=== PATIENT | male | born 1950 | race Caucasian/White ===

== ENCOUNTER 2024-10-18 12:18 | Outpatient (REF) | payer MEDICARE, SELFPAY ==
--- OUTSIDE RECORDS SUMMARY | 2024-10-18 14:29 | XMS_ITS | Clinical Summary ---
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 Active metoprolol succinate 50 mg tablet extended release 24 hr 50 mg, hydroCHLOROthiazide 12.5 mg capsule 12.5 mg Take by mouth. Active rosuvastatin (Ezallor Sprinkle) 20 mg capsule, sprinkle Take by mouth. Active Encounters Date Type Department Care Team Description 07/20/2024 1:30 PM EST Procedure visit General Surgery - [address] [place] [address] Gaurav Mata MD Epidermoid cyst of skin of chest (Primary Dx) from Last 3 Months Social History Tobacco Use Types Packs/Day Years Used Date Smoking Tobacco: Never Tobacco Cessation:Counseling Given: Not Answered Alcohol Use Standard Drinks/Week Comments Never 0 (1 standard drink = 0.6 oz pur e alcohol) Sex and Gender Information Value Date Recorded Sex Assigned at Not on file Legal Sex Male 12:00 PM EDT Gender Identity Not on file Sexual Orientation Not on file Obstetrics History Last Filed Vital Signs Vital Sign Reading Time Taken Comments Blood Pressure 114/69 07/20/2024 1:12 PM EST Pulse 70 07/20/2024 1:12 PM EST Temperature - - Respiratory Rate - - Oxygen Saturation - - Inhaled Oxygen Concentration - - Weight 87.4 kg (192 lb 9.6 oz) 07/20/2024 1:12 P M EST Height 167.6 cm (5' 6 ) 07/20/2024 1:12 PM EST Body Mass Index 31.09 07/20/2024 1:12 PM EST Plan of Treatment Health Maintenance Due Date Last Done Comments DTaP,Tdap,and Td Vaccines (1 - Tdap) 1970 Pneumococcal Vaccine: 50+ Years (1 of 1 - PCV) 2001 Zoster Vaccines (1 of 2) 2001 COVID-19 Vaccine (3 - 2023-2 5 season) 2024 11/28/2020, 10/31/2020 Influenza Vaccine (#1) 2024 Cholesterol Screening (Lipid Panel) 05/21/2024 Colorectal Cancer Screening: Colonoscopy 05/21/2024 Depression Screening 05/21/2024 Falls Risk Assessment 05/21/2024 Hepatitis C Screening 05/21/2024 Medicare Annual Wellness Visit 05/21/2024 Social Influencers of Health Screening 05/21/2024 Hypertension/CHF/CAD Annual BMP Blood Test 07/20/2024 RSV Immunization Patients 60 + Years Old (1 - 1-dose 75+ series) 2026 HIB Vaccines Aged Out No longer eligi ble based on patient's age to complete this topic HPV Vaccines Aged Out No longer eligi ble based on patient's age to complete this topic Hepatitis A Vaccines Aged Out No long er eligible based on patient's age to complete this topic Hepatitis B Vaccines Aged Out No long er eligible based on patient's age to complete this topic IPV Vaccines Aged Out No longer eligi ble based on patient's age to complete this topic MMR Vaccines Aged Out No longer eligi ble based on patient's age to complete this topic Meningococcal ACWY Vaccine Aged Out N o longer eligible based on patient's age to complete this topic Meningococcal B Vacine Aged Out No lo nger eligible based on patient's age to complete this topic RSV Immunization Patients Under 20 months Aged Out No longer eligible b ased on patient's age to complete this topic Varicella Vaccines Aged Out No longer eligible based on patient's age to complete this topic Procedures Procedure Name Priority Date/Time Associated Diagnosis Comments TISSUE EXAM Routine 07/20/2024 1:29 PM EST Epidermoid cyst of skin of chest from Last 3 Months Results * Tissue exam (07/20/2024 1:29 PM EST) Final Diagnosis Skin, mid chest-excision: -EPIDERMAL INCLUSION CYST 07/22/2024 11:14 AM [facility] Gross Description A. Chest, Mid, Sebaceous Cyst on Chest: Labeled chest mid . Received in formalin is an intact, rubbery, white unilocular, bulging, 2.0 x 1.8 x 1.8 cm cyst with minimal attached adipose tissue which is surfaced by 1.4 x 1.0 x 0.1 cm white skin ellipse. On sectioning the cyst has a smooth lining and contains yellow-white, friable material, some of which is attached to the cyst lining. The margin is inked blue. A senior customer service representative section is submitted in one cassette, one piece. TS 07/22/2024 11:14 AM [facility] Disclaimer Unless otherwise specified, all tissue is 10% NB formalin fixed and paraffin embedded. 07/22/2024 11:14 AM [facility] Tissue Thoracic structure / Unknown Non-blood Collection / Unknown 07/20/2024 1:29 PM EST 07/20/2024 1:39 PM EST Gaurav Mata MD LAB PATHOLOGY ORDERABLES Fi nal Result [facility] [address] [place] [address], from Last 3 Months Insurance [facility] MEDICARE on file Care Teams Fireb[employer] Layer Helper Relationship Specialty Start Date End Date Cha Duron MD [address] [place] [id number] PCP - General Internal Medicine 05/21/24
== END 2024-10-18 12:19 | disposition home or self-care (01) ==
LOC: HO.SH 12:18
PROVIDERS: PCP Internal Medicine; Visit Provider Internal Medicine
DX: Z01.118 Encounter for examination of ears and hearing with other abnormal findings (principal); H90.3 Sensorineural hearing loss, bilateral; H93.11 Tinnitus, right ear
CPT/HCPCS: 92557; 92567